=== PATIENT | female | born 1980 | race Caucasian/White ===

== ENCOUNTER 2018-09-28 22:28 | Emergency (ER) | payer SELFPAY ==
[~2018-09-28] VITALS: Ht 165.1 cm; Wt 60.4 kg
--- NOTE | 2018-09-28 22:48 | NUR ---
URINE SAMPLE COLLECTED AND SENT TO LAB.
--- NOTE | 2018-09-28 23:52 | NUR ---
AWAITING ARRIVAL OF [facility]. VSS. PT UPDATED ON POC.
--- NOTE | 2018-09-29 00:30 | NUR ---
MALICK HERE TO TAKE STATEMENT. PT DID NOT WANT TO GO TO [facility], WILL GO TOMORROW. DEBBID GAVE PT INFORMATION NEEDED TO FOLLOW UP WITH [facility] TOMORROW.
[2018-09-29 00:53] VITALS: BP 121/68
== END 2018-09-29 00:56 | disposition home or self-care (01) ==
LOC: ED 23:59
DX: T76.21XA Adult sexual abuse, suspected, initial encounter (principal)
CPT/HCPCS: 99283

== ENCOUNTER 2020-02-06 10:43 | Emergency (ER) | payer OTHER ==
[~2020-02-06] VITALS: Ht 165.1 cm; Wt 64.0 kg
[2020-02-06 10:49] VITALS: BP 114/79
--- NOTE | 2020-02-06 11:02 | NUR ---
PT HAS DOG BITE TO RIGHT FOREARM W 4 PUNCTURES. PT STATES DOG HAD RABIES TAG. LAST TETANUS 6 MONTHS AGO.
[2020-02-06] MEDS ORDERED: OXYcodone/APAP 5/325MG TABLET ONE (11:16)
[2020-02-06] MEDS ORDERED: LIDOCAINE-MPF 2% ,5ML ONE (11:16)
[2020-02-06] MEDS ORDERED: LIDOCAINE-MPF 1%, 5ML INFIL ONE (11:30)
[2020-02-06] MEDS ORDERED: OXYcodone/APAP 5/325MG TABLET PO ONE (11:30)
[2020-02-06] MEDS ORDERED: NEOSPORIN OINT. PKT 1 PACKET ONE (11:53)
== END 2020-02-06 12:37 | disposition home or self-care (01) ==
LOC: ED 11:13
DX: S51.851A Open bite of right forearm, initial encounter (principal); Z88.0 Allergy status to penicillin; Z90.49 Acquired absence of other specified parts of digestive tract; W54.0XXA Bitten by dog, initial encounter; Y93.89 Activity, other specified; Y92.89 Other specified places as the place of occurrence of the external cause; Y99.8 Other external cause status
CPT/HCPCS: 12001; 99283